=== PATIENT | female | born 1980 | race American Indian/Alaskan Native ===

== ENCOUNTER 2017-04-12 15:11 | Emergency (ER) | payer SELFPAY ==
[2017-04-12 16:15] VITALS: BP 155/95
--- NOTE | 2017-04-12 16:29 | Emergency Department Report ---
Chief Complaint: Abdominal Pain Stated Complaint: NAUSE/BLOOD IN STOOL/VOMIT/CRAMPING/SOB Time Seen by Provider: 04/12/17 16:00 - HPI History of Present Illness: abd pain n/v w blood in it stool w blood tubal rx none no etoh no drugs - ROS Review of Systems: above - Exam Vital Signs: Vital Signs 04/12/17 16:11 Temperature 98 F Pulse Rate 90 Respiratory 18 Rate Blood Pressure 155/95 O2 Sat by Pulse 98 Oximetry MSE screening note: Focused history and physical exam performed. Due to findings the following was ordered: ED Disposition for MSE Condition: Stable Instructions: Abdominal Pain (ED)
[2017-04-12 16:59] LABS: Basophils % (Auto) 0.2 % (0.0-1.8); Hematocrit 29.6 % (30.3-42.9); Mean Corpuscular HGB Conc 30 % (30-34); Platelet Count 438 K/mm3 (140-440); Red Blood Count 4.66 M/mm3 (3.65-5.03); White Blood Count 14.4 K/mm3 (4.5-11.0)
[2017-04-12 17:08] LABS: Alanine Aminotransferase 20 units/L (7-56); Albumin 4.2 g/dL (3.9-5); Albumin/Globulin Ratio 1.4 %; Alkaline Phosphatase 62 units/L (35-129); Amylase 47 units/L (27-131); Anion Gap 21 mmol/L; Blood Urea Nitrogen 8 mg/dL (7-17); Carbon Dioxide 21 mmol/L (22-30); Chloride 99.2 mmol/L (98-107); Glucose 114 mg/dL (65-100); Lipase 19 units/L (13-60); Potassium 3.9 mmol/L (3.6-5.0); Sodium 137 mmol/L (137-145); Total Protein 7.3 g/dL (6.3-8.2)
[2017-04-12 17:13] LABS: Bilirubin,Direct < 0.2 mg/dL (0-0.2); Bilirubin,Indirect 0.1 mg/dL
[2017-04-12 17:14] LABS: Mean Corpuscular Hemoglobin 19 pg (28-32); Mean Corpuscular Volume 64 fl (79-97); Red Cell Distribution Width 20.6 % (13.2-15.2)
--- NOTE | 2017-04-16 00:44 | ED Elopement Review ---
ED Pt Elopement review - Results review Lab results: Laboratory Tests 04/12/17 04/12/17 16:33 16:33 WBC 14.4 H RBC 4.66 Hgb 9.0 L Hct 29.6 L MCV 64 L MCH 19 L MCHC 30 RDW 20.6 H Plt Count 438 Lymph % (Auto) 9.6 L [place] % (Auto) 4.1 Eos % (Auto) 0.0 Baso % (Auto) 0.2 Lymph # 1.4 [place] # 0.6 Eos # 0.0 Baso # 0.0 Seg Neutrophils % 86.1 H Seg Neutrophils # 12.4 H Sodium 137 Potassium 3.9 Chloride 99.2 Carbon Dioxide 21 L Anion Gap 21 BUN 8 Creatinine 0.5 L Estimated GFR > 60 BUN/Creatinine Ratio 16.00 Glucose 114 H Calcium 10.0 Total Bilirubin 0.30 Direct Bilirubin < 0.2 Indirect Bilirubin 0.1 AST 26 ALT 20 Alkaline Phosphatase 62 Total Protein 7.3 Albumin 4.2 Albumin/Globulin Ratio 1.4 Amylase 47 Lipase 19 - Call Back decision Pt Call Back Decision: Pt to F/U with PMD
== END 2017-04-12 21:45 | disposition left against medical advice (07) ==
LOC: ED 15:11
DX: R10.9 Unspecified abdominal pain (principal); R11.2 Nausea with vomiting, unspecified; R19.5 Other fecal abnormalities; Z53.21 Procedure and treatment not carried out due to patient leaving prior to being seen by health care provider
CPT/HCPCS: 36415; 80048; 80074; 82150; 83690; 85025

== ENCOUNTER 2017-07-19 01:40 | Emergency (ER) | payer SELFPAY ==
[2017-07-19 04:22] VITALS: BP 175/101
[2017-07-19] MEDS ORDERED: ZOFRAN ODT ONE (04:31)
[2017-07-19] MEDS ORDERED: ZOFRAN ODT PO ONE (04:35)
[2017-07-19 05:24] LABS: Hematocrit 23.5 % (30.3-42.9); Mean Corpuscular HGB Conc 30 % (30-34); Mean Corpuscular Hemoglobin 18 pg (28-32); Mean Corpuscular Volume 60 fl (79-97); Platelet Count 519 K/mm3 (140-440); Red Blood Count 3.92 M/mm3 (3.65-5.03); Red Cell Distribution Width 22.3 % (13.2-15.2); White Blood Count 8.4 K/mm3 (4.5-11.0)
[2017-07-19 05:41] LABS: Alanine Aminotransferase 18 units/L (7-56); Albumin 4.1 g/dL (3.9-5); Albumin/Globulin Ratio 1.2 %; Alkaline Phosphatase 54 units/L (35-129); Anion Gap 22 mmol/L; Blood Urea Nitrogen 6 mg/dL (7-17); Calcium 9.6 mg/dL (8.4-10.2); Carbon Dioxide 19 mmol/L (22-30); Chloride 101.6 mmol/L (98-107); Glucose 117 mg/dL (65-100); Lipase 12 units/L (13-60); Potassium 3.4 mmol/L (3.6-5.0); Sodium 139 mmol/L (137-145); Total Protein 7.5 g/dL (6.3-8.2)
[2017-07-19 06:23] LABS: Anisocytosis 2+; Blastocytes % (Manual) 0 %; Hypochromasia 3+; Microcytosis 2+; Platelet Estimate Cons; Polychromasia Rare; Schistocytes Rare
[2017-07-19 06:24] LABS: Diff Status Complete
== END 2017-07-19 05:15 | disposition left against medical advice (07) ==
LOC: ED 01:40
DX: R10.9 Unspecified abdominal pain (principal); Z53.21 Procedure and treatment not carried out due to patient leaving prior to being seen by health care provider
CPT/HCPCS: 36415; 80053; 83690; 84484; 84703; 85007; 85025; 93005; 93010; Q0162

== ENCOUNTER 2017-12-19 13:32 | Emergency (ER) | payer SELFPAY | END 2017-12-19 14:00 | disposition left against medical advice (07) | LOC: ED 13:32 | DX: R10.9 Unspecified abdominal pain (principal); R07.9 Chest pain, unspecified; R11.10 Vomiting, unspecified; Z53.21 Procedure and treatment not carried out due to patient leaving prior to being seen by health care provider ==